=== PATIENT | male | born 1955 ===

== ENCOUNTER 2018-04-26 08:32 | Inpatient (IN) ==
[2018-04-26] MEDS ORDERED: Morphine Inj 4 MG/ML Vial ONE (08:39)
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
[2018-04-26 09:12] LABS: Activated Partial Thrombo Time 21.6 sec (23.4-31.7); Prothrombin Time 10.4 sec (9.8-11.6)
[2018-04-26 09:16] LABS: Baso # (Auto) 0.1 th/mm3 (0.0-0.2); Baso % (Auto) 0.4 % (0.0-2.0); Eos # (Auto) 0.2 th/mm3 (0.0-0.4); Eos % (Auto) 1.2 % (0.0-4.0); Hematocrit 43.2 % (39.0-51.0); Hemoglobin 14.9 gm/dL (13.0-17.0); Lymph # (Auto) 2.4 th/mm3 (1.0-4.8); Lymph % (Auto) 15.1 % (9.0-44.0); Mean Corpuscular HGB Conc 34.4 % (32.0-36.0); Mean Corpuscular Volume 90.1 fL (80.0-100.0); Mono # (Auto) 0.8 th/mm3 (0.0-0.9); Mono % (Auto) 4.8 % (0.0-8.0); Neut # (Auto) 12.5 th/mm3 (1.8-7.7); Neut % (Auto) 78.5 % (16.0-70.0); Platelet Count 201 th/mm3 (150-450); Red Blood Count 4.79 mil/mm3 (4.50-5.90); Red Cell Distribution Width 13.3 % (11.6-17.2); White Blood Count 15.9 th/mm3 (4.0-11.0)
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
[2018-04-26 09:34] LABS: Anion Gap 10 meq/L (5-15); Blood Urea Nitrogen 19 mg/dL (7-18); Calcium 8.9 mg/dL (8.5-10.1); Carbon Dioxide 23.9 meq/L (21.0-32.0); Chloride 98 meq/L (98-107); Glomerular Filtration Rate 42 mL/min (>89); Glucose,Random 407 mg/dL (74-106); Potassium 4.3 meq/L (3.5-5.1); Sodium 132 meq/L (136-145)
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
[2018-04-26] MEDS ORDERED: HYDROmorphone PF Inj 2 MG/ML Vial IV.PUSH ONE (09:44)
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
[2018-04-26] MEDS ORDERED: HYDROmorphone PF Inj 1 MG/ML Ampul ONE (12:16)
[2018-04-26] MEDS ORDERED: fentaNYL Citrate Inj 250 MCG/5 ML Ampul ONE (13:00)
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
[2018-04-26] MEDS ORDERED: ceFAZolin 1 GM Premix Inj 3 GM/150 ML PIGGYBACK IV.SIG ONE (13:20)
[2018-04-26] MEDS ORDERED: Famotidine PF Inj 20 MG/2 ML Vial ONE (13:27)
[2018-04-26] MEDS ORDERED: fentaNYL Citrate Inj 100 MCG/2 ML Ampul ONE (13:27)
[2018-04-26] MEDS ORDERED: Dextrose 50% in Water 50 ML Vial IV.PUSH PRN ×2 (13:31→17:05)
[2018-04-26] MEDS ORDERED: HYDROmorphone PF Inj 1 MG/ML Ampul IV.PUSH ONE (14:00)
[2018-04-26] MEDS ORDERED: Erythromycin 0.5% Opth Oint 3.5 GM Tube ONE (14:02)
[2018-04-26] MEDS ORDERED: Artificial Tears Opth Oint 3.5 GM Tube ONE (14:04)
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
[2018-04-26] MEDS ORDERED: Bupivacaine/Epinephrine Inj 0.25% 50 ML Vial ONE (15:22)
[2018-04-26] MEDS ORDERED: Post-op Orders (for Pharmacy) OTHER STA (15:27)
--- NOTE | 2018-04-26 15:35 | P.OP ---
Date of procedure: 04/26/18 Procedure: Right femur reduction and intramedullary nail fixation Anesthesia: GETA Surgeon: Juan Alberto Caputo MD Emergency Response Coordinator: Justino Welch PA-C The surgical procedure was assisted by my physician assistant store manager. My P.A. presence was necessary throughout this case for the manipulation and positioning of the surgical extremity. My P.A. was assisting me throughout the duration of this procedure. The skill set of a physician assistant store manager was medically necessary to complete this procedure. During the surgical case the instructor adjunct surgical technician was working at the back table and the physician assistant store manager was directly assisting me. Operation and Findings: Implants used: Biomet 11 mm x 440 mm troch nail Plan of activity: 50% weightbearing right leg Patient was seen and evaluated preoperatively. The patient has significant pain from segmental right femur fractures. The risk and benefits of surgery were discussed in depth with the patient to include bleeding, infection, nonunion, malunion, need for hip replacement, painful hardware, as well as medical competitions including blood clots, stroke, heart attack, and . Informed consent was obtained. Operative site was marked. Patient was brought to the operating room and placed on fracture table. IV sedation was administered by anesthesiologist. Timeout procedure was performed. Hip and leg were prepped with alcohol followed by DuraPrep and draped in the usual sterile fashion. IV antibiotics were given prior to incision. Procedure began with reduction of fracture. Traction was applied. Percutaneous incisions were made around the fractures. Using ball spike reduction instruments, the fractures were manipulated to achieve appropriate reduction. Fluoroscopy was used to confirm reduction. A three inch incision was made proximal to the trochanter. Subcutaneous tissue was dissected bluntly. Guidepin was placed at the tip of the trochanter and advanced into the femoral canal. Fluoroscopy confirmed appropriate guidepin placement. A opening reamer was placed over the guidepin. A long ball tipped guide pin was now placed down the femoral canal into the center of the distal femur. The nail length was now measured. Fluoroscopy confirmed appropriate guidepin placement. Flexible reamers were now passed over the guidepin to ream the intramedullary canal. The nail was attached to the insertion handle. Nail was now placed over the guidepin into the femoral canal. Fluoroscopy confirmed appropriate nail placement. A second incision was made over the lateral thigh. Cannulas were placed through the insertion handle down to the femur. Guidepin was now placed through the femoral nail into the center of the femoral head. Fluoroscopy confirmed appropriate guidepin placement. Screw length was measured. Cannulated drill was placed over the guidepin. Appropriate length lag screw was now placed. Traction was released and compression was applied. Both the subtrochanteric and femoral shaft fractures were well aligned. the set screw was now tightened in static mode. Next, using perfect napaimute technique two distal interlocking screws were placed. Screw holes were predrilled and screw lengths were measured. Final fluoroscopy revealed well aligned fracture with well-placed hardware. Incision was closed with 3-0 Vicryl and mars. Sterile dressings were applied. Patient was awakened and transferred to recovery room.
[2018-04-26] MEDS ORDERED: Sodium Chloride 0.9% 2 ML Flush PRN IV.FLUSH (15:37)
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
[2018-04-26] MEDS ORDERED: Insulin NovoLIN Regular Correctional Sugar Inj ONE (16:14)
[2018-04-26] MEDS: Sod Chloride 0.9% Inj 1,000 ML IV.CONT SCH (16:25)
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
[2018-04-26] MEDS: Pantoprazole Inj 40 MG Vial IV.PUSH SCH (16:35)
[2018-04-26] MEDS ORDERED: Sugammadex Inj 200 MG/2 ML Vial IV.PUSH ONE (16:42)
[2018-04-26] MEDS ORDERED: HYDROmorphone PF Inj 0.5 MG/0.5 ML Syringe ONE (16:50)
[2018-04-26] MEDS ORDERED: Insulin NovoLOG Aspart Correctional Sugar Inj SQ SCH (17:00)
[2018-04-26] MEDS: Morphine Inj 4 MG/ML Vial IV.PUSH PRN ×2 (17:10→20:57)
[2018-04-26] MEDS: Calcium/Vitamin D 250/125 MG Tablet PO SCH (17:23)
[2018-04-26] MEDS ORDERED: Diatrizoate Meglum/Diatrizoate Sod Liq 9 ML UDC PO ONE (17:28)
[2018-04-26] MEDS ORDERED: Hold Metfromin until further notice OTHER ONE (17:28)
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
[2018-04-26] MEDS: Insulin NovoLIN Regular Correctional Sugar Inj SQ SCH (18:05)
[2018-04-26] MEDS: Multivitamin Inj 10 ML, Thiamine Inj 100 MG, Folic Acid Inj 1 MG in Sodium Chlor 0.9% I... IV.SIG SCH (19:07)
[2018-04-26 20:10] LABS: Hematocrit 39.1 % (39.0-51.0)
[2018-04-26] MEDS: Sodium Chloride 0.9% 2 ML Flush BID IV.FLUSH SCH (20:56)
[2018-04-26] MEDS: Senna/Docusate Sodium 8.6/50 MG Tablet PO SCH (21:32)
[2018-04-26] MEDS: Methocarbamol 500 MG Tablet PO SCH (23:15)
[2018-04-27] MEDS: Morphine Inj 4 MG/ML Vial IV.PUSH PRN ×3 (00:14→11:42)
[2018-04-27] MEDS: Insulin NovoLIN Regular Correctional Sugar Inj SQ SCH ×5 (00:16→20:37)
[2018-04-27] MEDS: Sod Chloride 0.9% Inj 1,000 ML IV.CONT SCH (00:16)
[2018-04-27] MEDS ORDERED: predniSONE 20 MG Tablet PO SCH (01:00)
[2018-04-27 03:51] LABS: Baso % (Auto) 0.4 % (0.0-2.0); Eos % (Auto) 0.2 % (0.0-4.0); Hematocrit 35.7 % (39.0-51.0); Hemoglobin 12.2 gm/dL (13.0-17.0); Lymph # (Auto) 1.3 th/mm3 (1.0-4.8); Lymph % (Auto) 13.7 % (9.0-44.0); Mean Corpuscular HGB Conc 34.3 % (32.0-36.0); Mean Corpuscular Hemoglobin 30.9 pg (27.0-34.0); Mean Corpuscular Volume 90.2 fL (80.0-100.0); Mean Platelet Volume 9.3 fL (7.0-11.0); Mono # (Auto) 0.9 th/mm3 (0.0-0.9); Mono % (Auto) 9.2 % (0.0-8.0); Neut # (Auto) 7.3 th/mm3 (1.8-7.7); Neut % (Auto) 76.5 % (16.0-70.0); Platelet Count 189 th/mm3 (150-450); Red Blood Count 3.96 mil/mm3 (4.50-5.90); Red Cell Distribution Width 13.7 % (11.6-17.2); White Blood Count 9.5 th/mm3 (4.0-11.0)
[2018-04-27] MEDS ORDERED: Chlorhexidine Gluconate 2% 1 Pack (2 Cloths) TOPICAL PRN (04:00)
[2018-04-27 04:15] LABS: Alanine Aminotransferase 94 U/L (12-78); Albumin 3.3 g/dL (3.4-5.0); Alkaline Phosphatase 78 U/L (45-117); Anion Gap 8 meq/L (5-15); Aspartate Aminotransferase 78 U/L (15-37); Blood Urea Nitrogen 25 mg/dL (7-18); Calcium 8.1 mg/dL (8.5-10.1); Carbon Dioxide 24.9 meq/L (21.0-32.0); Chloride 104 meq/L (98-107); Glomerular Filtration Rate 48 mL/min (>89); Glucose,Random 244 mg/dL (74-106); Potassium 4.4 meq/L (3.5-5.1); Sodium 137 meq/L (136-145); Total Protein 6.1 g/dL (6.4-8.2)
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
[2018-04-27] MEDS: Methocarbamol 500 MG Tablet PO SCH ×4 (06:45→21:00)
[2018-04-27] MEDS: Chlorhexidine Gluconate 2% 1 Pack (2 Cloths) TOPICAL SCH (06:45)
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
[2018-04-27] MEDS: glipiZIDE 5 MG Tablet PO SCH (08:16)
[2018-04-27] MEDS: Senna/Docusate Sodium 8.6/50 MG Tablet PO SCH ×2 (08:16→20:38)
[2018-04-27] MEDS: Calcium/Vitamin D 250/125 MG Tablet PO SCH ×3 (08:16→17:22)
[2018-04-27] MEDS ORDERED: Diatrizoate Meglum/Diatrizoate Sod Liq 9 ML UDC PO ONE (09:00)
[2018-04-27] MEDS: Atenolol 50 MG Tablet PO SCH (10:07)
[2018-04-27] MEDS: Sodium Chloride 0.9% 2 ML Flush BID IV.FLUSH SCH ×2 (10:19→20:38)
[2018-04-27] MEDS ORDERED: Sodium Chloride 0.65% Nasal Spray 45 ML Bottle EACH NARE PRN (12:22)
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
[2018-04-27] MEDS ORDERED: Enoxaparin Inj 40 MG/0.4 ML Syringe SQ SCH (15:00)
[2018-04-27] MEDS: Lidocaine 5% Patch T-DERMAL SCH ×2 (15:17→16:25)
[2018-04-27] MEDS: Pantoprazole Inj 40 MG Vial IV.PUSH SCH (15:18)
--- NOTE | 2018-04-27 15:41 | ECG ---
Date Performed: 04/26/2018 Time Performed: 12:25:16 PTAGE: 89 years EKG: Sinus rhythm MODERATE INTRAVENTRICULAR CONDUCTION DELAY BORDERLINE ECG NO PREVIOUS TRACING DOCTOR: Cong Stone Interpretating Date/Time 04/27/2018 15:40:26
[2018-04-27] MEDS: Multivitamin Inj 10 ML, Thiamine Inj 100 MG, Folic Acid Inj 1 MG in Sodium Chlor 0.9% I... IV.SIG SCH (17:12)
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
[2018-04-27] MEDS: Enoxaparin Inj 30 MG/0.3 ML Syringe SQ SCH (20:38)
[2018-04-27] MEDS ORDERED: predniSONE 20 MG Tablet PO ONE (22:30)
[2018-04-28] MEDS: Insulin NovoLIN Regular Correctional Sugar Inj SQ SCH ×6 (00:26→19:41)
[2018-04-28 04:15] LABS: Baso % (Auto) 0.3 % (0.0-2.0); Eos # (Auto) 0.1 th/mm3 (0.0-0.4); Eos % (Auto) 0.8 % (0.0-4.0); Hematocrit 28.2 % (39.0-51.0); Hemoglobin 9.9 gm/dL (13.0-17.0); Lymph # (Auto) 0.8 th/mm3 (1.0-4.8); Lymph % (Auto) 10.4 % (9.0-44.0); Mean Corpuscular HGB Conc 35.3 % (32.0-36.0); Mean Corpuscular Hemoglobin 31.6 pg (27.0-34.0); Mean Corpuscular Volume 89.7 fL (80.0-100.0); Mean Platelet Volume 9.1 fL (7.0-11.0); Mono # (Auto) 0.7 th/mm3 (0.0-0.9); Mono % (Auto) 10.2 % (0.0-8.0); Neut # (Auto) 5.7 th/mm3 (1.8-7.7); Neut % (Auto) 78.3 % (16.0-70.0); Platelet Count 150 th/mm3 (150-450); Red Blood Count 3.14 mil/mm3 (4.50-5.90); Red Cell Distribution Width 13.4 % (11.6-17.2); White Blood Count 7.3 th/mm3 (4.0-11.0)
[2018-04-28 04:35] LABS: Albumin 3.1 g/dL (3.4-5.0); Anion Gap 7 meq/L (5-15); Aspartate Aminotransferase 46 U/L (15-37); Blood Urea Nitrogen 23 mg/dL (7-18); Calcium 8.4 mg/dL (8.5-10.1); Carbon Dioxide 27.3 meq/L (21.0-32.0); Chloride 105 meq/L (98-107); Glomerular Filtration Rate 64 mL/min (>89); Glucose,Random 227 mg/dL (74-106); Potassium 3.9 meq/L (3.5-5.1); Sodium 139 meq/L (136-145)
[2018-04-28 04:38] LABS: Alanine Aminotransferase 57 U/L (12-78); Alkaline Phosphatase 75 U/L (45-117); Total Protein 6.1 g/dL (6.4-8.2)
[2018-04-28] MEDS: Chlorhexidine Gluconate 2% 1 Pack (2 Cloths) TOPICAL SCH (04:42)
[2018-04-28] MEDS: Methocarbamol 500 MG Tablet PO SCH ×3 (05:01→22:34)
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
[2018-04-28] MEDS ORDERED: Lidocaine 1%/Epinephrine 1:100,000 Inj 50 ML Vial ONE (06:49)
[2018-04-28] MEDS ORDERED: Artificial Tears Opth Oint 3.5 GM Tube ONE (07:09)
[2018-04-28] MEDS ORDERED: Sugammadex Inj 200 MG/2 ML Vial IV.PUSH ONE (07:09)
[2018-04-28] MEDS ORDERED: fentaNYL Citrate Inj 250 MCG/5 ML Ampul ONE (07:10)
[2018-04-28] MEDS ORDERED: ceFAZolin 1 GM Premix Inj 2 GM/100 ML PIGGYBACK IV.SIG ONE (07:17)
[2018-04-28] MEDS ORDERED: Metoprolol Tartrate 25 MG Tablet PO ONE (07:18)
[2018-04-28] MEDS ORDERED: Chlorhexidine Gluconate 2% 1 Pack (2 Cloths) TOPICAL ONE (07:18)
[2018-04-28] MEDS ORDERED: Sodium Chlor 0.9% Inj 500 ML IV.SIG SCH (08:00)
[2018-04-28] MEDS ORDERED: Bupivacaine/Epinephrine Inj 0.25% 50 ML Vial ONE (08:01)
--- NOTE | 2018-04-28 11:44 | P.OP ---
- Preoperative Diagnosis (1) Closed fracture of left distal radius Date of procedure: 04/28/18 Procedure: Open reduction reduction internal fixation left distal radius Surgeon: Juan Alberto Caputo MD Predatory Game Hunter: MAYNOR Martinez PA-C The surgical procedure was assisted by my physician central supply assistant. My P.A. presence was necessary throughout this case for the manipulation and positioning of the surgical extremity. My P.A. was assisting me throughout the duration of this procedure. The skill set of a physician central supply assistant was medically necessary to complete this procedure. During the surgical case the digital technician was working at the back table and the physician central supply assistant was directly assisting me. Operation and Findings: Implants used: Synthes Plan of activity: Nonweightbearing Details of procedure: Patient was seen and evaluated preoperatively and found to have a displaced distal radius fracture. Informed consent was obtained after detailed discussion of risk and benefits including bleeding, infection, injury to arteries, nerves, and blood vessels, weakness and numbness of hand, and tendon rupture. Informed consent was obtained. Patient received IV antibiotics prior to incision. Timeout procedure was performed. Operative extremity was prepped with alcohol followed by Hibiclens and draped usual sterile fashion. A standard volar approach to the distal radius was utilized. A 3 inch incision was made over the FCR tendon. Tendon sheath was opened. Pronator quadratus was elevated up. The fracture site was now visualized. The fracture did have intra-articular extension. Traction was applied. The articular surface was reduced. Fracture fragments were manipulated to achieve excellent reduction. K wires were used to hold provisional fixation. A fracture tenaculum was used to compress the radial styloid fragment to the remainder of the radius. Fluoroscopy confirmed appropriate alignment of fracture. A Synthes fragment specific distal radius plate was selected and contoured to fit along the radial styloid fragment. Plate was provisionally fixed to bone with K wires. 2.4 cortical screws were used to compress plate to bone. Fluoroscopy confirmed appropriate alignment of fracture with well-placed hardware. Multiple 2.4 locking screws were now placed distally. Screws were predrilled and measured for appropriate length. 2 additional screws were placed into the shaft. K wires were removed. Final fluoroscopy revealed excellent of fracture with well- placed hardware. The wound was thoroughly irrigated with sterile saline. Subcutaneous tissue was closed with 3-0 Vicryl and skin was closed with 3-0 nylon. Sterile dressings were applied with Xeroform, 4 x 4, soft roll, and a well padded volar splint. Patient was awakened and transferred to recovery room in stable condition
[2018-04-28] MEDS ORDERED: Morphine Inj 4 MG/ML Vial ONE (12:18)
[2018-04-28] MEDS ORDERED: fentaNYL Citrate Inj 100 MCG/2 ML Ampul ONE (12:19)
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
[2018-04-28] MEDS: Enoxaparin Inj 30 MG/0.3 ML Syringe SQ SCH ×2 (13:32→20:02)
[2018-04-28] MEDS: Calcium/Vitamin D 250/125 MG Tablet PO SCH ×3 (13:33→18:39)
[2018-04-28] MEDS: Senna/Docusate Sodium 8.6/50 MG Tablet PO SCH ×2 (13:34→20:02)
[2018-04-28] MEDS: glipiZIDE 5 MG Tablet PO SCH (13:56)
[2018-04-28] MEDS: Pantoprazole Inj 40 MG Vial IV.PUSH SCH (14:20)
[2018-04-28] MEDS: Lidocaine 5% Patch T-DERMAL SCH (14:20)
[2018-04-28] MEDS: ceFAZolin 2 GM Premix Inj 2 GM/50 ML PIGGYBACK IV.SIG SCH ×2 (14:20→20:02)
[2018-04-28] MEDS: Sodium Chloride 0.9% 2 ML Flush BID IV.FLUSH SCH ×2 (14:21→20:02)
[2018-04-28] MEDS: Atenolol 50 MG Tablet PO SCH ×2 (14:21→18:51)
[2018-04-28] MEDS: Multivitamin Inj 10 ML, Thiamine Inj 100 MG, Folic Acid Inj 1 MG in Sodium Chlor 0.9% I... IV.SIG SCH (14:25)
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
[2018-04-28] MEDS: Morphine Inj 4 MG/ML Vial IV.PUSH PRN ×2 (16:00→20:09)
[2018-04-28] MEDS ORDERED: Influenza (Quadrivalent) Vaccine 0.5 ML Syringe IM ONE (18:00)
[2018-04-29] MEDS: Insulin NovoLIN Regular Correctional Sugar Inj SQ SCH ×6 (00:40→22:10)
[2018-04-29] MEDS: ceFAZolin 2 GM Premix Inj 2 GM/50 ML PIGGYBACK IV.SIG SCH (03:48)
[2018-04-29] MEDS: Morphine Inj 4 MG/ML Vial IV.PUSH PRN (03:48)
[2018-04-29] MEDS: Chlorhexidine Gluconate 2% 1 Pack (2 Cloths) TOPICAL SCH (05:04)
[2018-04-29] MEDS: Methocarbamol 500 MG Tablet PO SCH ×3 (05:35→22:22)
[2018-04-29 06:05] LABS: Baso % (Auto) 0.3 % (0.0-2.0); Eos # (Auto) 0.1 th/mm3 (0.0-0.4); Eos % (Auto) 1.2 % (0.0-4.0); Hematocrit 22.9 % (39.0-51.0); Hemoglobin 8.2 gm/dL (13.0-17.0); Lymph # (Auto) 0.9 th/mm3 (1.0-4.8); Lymph % (Auto) 15.3 % (9.0-44.0); Mean Corpuscular HGB Conc 35.8 % (32.0-36.0); Mean Corpuscular Hemoglobin 32.1 pg (27.0-34.0); Mean Corpuscular Volume 89.7 fL (80.0-100.0); Mean Platelet Volume 8.7 fL (7.0-11.0); Mono # (Auto) 0.6 th/mm3 (0.0-0.9); Neut # (Auto) 4.4 th/mm3 (1.8-7.7); Neut % (Auto) 73.2 % (16.0-70.0); Platelet Count 141 th/mm3 (150-450); Red Blood Count 2.55 mil/mm3 (4.50-5.90); Red Cell Distribution Width 13.7 % (11.6-17.2)
[2018-04-29 06:12] LABS: Calcium 8.2 mg/dL (8.5-10.1); Carbon Dioxide 28.8 meq/L (21.0-32.0); Potassium 3.7 meq/L (3.5-5.1)
--- NOTE | 2018-04-29 06:26 | P.PNOP ---
Subjective Interval history: POD 1 s/p ORIF left wrist POD 3 s/p IMN right femur doing well. states no pain in wrist but soreness in femur Physical Exam Vital signs: Vital Signs 04/28/18 12:10 04/28/18 12:15 04/28/18 12:17 Temperature 96.4 F L Pulse Rate 106 H 105 H Respiratory Rate 17 17 Blood Pressure 136/74 174/78 H Pulse Oximetry 91 L 93 L 95 04/28/18 12:30 04/28/18 12:50 04/28/18 13:12 Temperature Pulse Rate 102 H Respiratory Rate 17 Blood Pressure 174/78 H 130/64 Pulse Oximetry 96 97 95 04/28/18 13:17 04/28/18 13:32 04/28/18 13:47 Temperature Pulse Rate 98 H 98 H 107 H Respiratory Rate 13 10 L 7 L Blood Pressure 148/68 H 148/69 H 140/61 Pulse Oximetry 95 96 98 04/28/18 14:00 04/28/18 14:02 04/28/18 14:17 Temperature Pulse Rate 95 H 97 H 100 H Respiratory Rate 8 L 9 L 12 Blood Pressure 141/64 H 145/64 H Pulse Oximetry 96 97 99 04/28/18 14:32 04/28/18 14:47 04/28/18 15:00 Temperature Pulse Rate 99 H 94 H 95 H Respiratory Rate 6 L 9 L 14 Blood Pressure 133/60 136/62 Pulse Oximetry 98 99 98 04/28/18 15:02 04/28/18 15:17 04/28/18 15:32 Temperature Pulse Rate 96 H 100 H 96 H Respiratory Rate 12 0 L 0 L Blood Pressure 125/60 127/61 131/61 Pulse Oximetry 99 94 L 97 04/28/18 15:47 04/28/18 20:18 04/28/18 23:55 Temperature 98.6 F 98.6 F 99.2 F Pulse Rate 106 H 103 H Respiratory Rate 20 18 Blood Pressure 128/66 143/65 H 108/54 L Pulse Oximetry 94 L 94 L 04/29/18 00:33 Temperature Pulse Rate Respiratory Rate 16 Blood Pressure Pulse Oximetry Intake & Output 04/28/18 04/28/18 04/29/18 06:59 18:59 06:59 Intake Total 751.2 / 751.2 1550 / 1550 611.2 / 611.2 Output Total 880 / 880 475 / 475 Balance -128.8 / -128.8 1075 / 1075 611.2 / 611.2 Weight 136.8 kg Intake: IV 511.2 / 511.2 50 / 50 611.2 / 611.2 MVI-12 Inj 10 ML Thiamine Inj 511.2 / 511.2 511.2 / 511.2 100 MG Folvite Inj 1 MG In NS Inj 500 ML @ 125 mls/hr IV.SIG Q24H [facility] Rx#:[id number] Ancef 2 GM Premix Inj 2 gm In 50 / 50 100 / 100 50 ml @ 100 mls/hr IV.SIG Q8H [facility] Rx#:[id number] Oral 240 / 240 Anesthesia Amount 1500 / 1500 Output: Urine 880 / 880 450 / 450 Estimated Blood Loss 25 / Other: Date of Last Bowel Movement 04/25/18 # Bowel Movements 0 Narrative: LUE: +short arm splint. intact. NVI RLE: dressings clean and dry. compartments soft. nvi Results - Labs CBC & Chem 7: 04/29/18 04:51 04/29/18 04:51 Laboratory Results - last 24 hr 04/28/18 04/28/18 04/28/18 07:27 12:15 14:19 WBC RBC Hgb Hct MCV MCH MCHC RDW Plt Count MPV Neut % (Auto) Lymph % (Auto) [place] % (Auto) Eos % (Auto) Baso % (Auto) Neut # (Auto) Lymph # (Auto) [place] # (Auto) Eos # (Auto) Baso # (Auto) WBC Differential Differential Comment Sodium Potassium Chloride Carbon Dioxide Anion Gap BUN Creatinine Estimated GFR POC Glucose 251 H 279 H 309 H Random Glucose Calcium 04/28/18 04/29/18 04/29/18 19:11 00:24 03:38 WBC RBC Hgb Hct MCV MCH MCHC RDW Plt Count MPV Neut % (Auto) Lymph % (Auto) [place] % (Auto) Eos % (Auto) Baso % (Auto) Neut # (Auto) Lymph # (Auto) [place] # (Auto) Eos # (Auto) Baso # (Auto) WBC Differential Differential Comment Sodium Potassium Chloride Carbon Dioxide Anion Gap BUN Creatinine Estimated GFR POC Glucose 245 H 234 H 235 H Random Glucose Calcium 04/29/18 04/29/18 04:51 04:51 WBC 6.0 RBC 2.55 L Hgb 8.2 L Hct 22.9 L MCV 89.7 MCH 32.1 MCHC 35.8 RDW 13.7 Plt Count 141 L MPV 8.7 Neut % (Auto) 73.2 H Lymph % (Auto) 15.3 [place] % (Auto) 10.0 H Eos % (Auto) 1.2 Baso % (Auto) 0.3 Neut # (Auto) 4.4 Lymph # (Auto) 0.9 L [place] # (Auto) 0.6 Eos # (Auto) 0.1 Baso # (Auto) 0.0 WBC Differential . Differential Comment Auto diff final Sodium 139 Potassium 3.7 Chloride 106 Carbon Dioxide 28.8 Anion Gap 4 L BUN 22 H Creatinine 1.32 H Estimated GFR 55 L POC Glucose Random Glucose 204 H Calcium 8.2 L - Imaging Impressions Wrist X-Ray 04/28/18 00:00 CONCLUSION: Improved alignment following left distal radius ORIF. Assessment and Plan - Assessment and Plan 1) Left Distal Radius Fx s/p ORIF - POD 1 2) Right Femur Fx s/p IMN - POD 3 LUE: -NWB -maintain splint at all times -ok for platform walker RLE: -50%WB -daily dressing changes -DVT prophylaxis -ortho surgeries complete -CM for DC planning. home with [facility] vs SNF pending patient's ambulatory status -ortho cleared for DC once arrangements made -scripts on chart -f/u with Mayank or JAZZY in 2 weeks [facility] Prescription Drug Monitoring Database has been queried and verified prior to prescribing the controlled substance. Acute pain exception. This patient has normal, predicted, physiological, and time limited response to an adverse mechanical stimulus associated with surgery, trauma, or acute illness as described in my notes. There is a lack of alternative treatment options other than to include the prescribed narcotic treatment for this condition.
--- NOTE | 2018-04-29 06:30 | P.DCO ---
- Physical Therapy Physical Therapy: Gait training Hip: Hip fracture, Protocol: Right Right Lower Extremity Weight Bearing: Partial weight bearing 50% - Occupational Therapy Left Upper Extremity Weight Bearing: Non-weight bearing, May use platform walker - Nursing Dressing changes: Daily dressing change (to right leg only), Xeroform, Coverderm /Primapore - Certification Need for Home Health services: I have seen patient Alfred Hummel on 04/29/18. My clinical findings support the need for the requested home health care services because: Need for Home Health Services: Limited mobility due to disease progression Homebound Certification: I certify that my clinical findings support that this patient is homebound because: Homebound Certification: Post-op weakness
[2018-04-29] MEDS: Atenolol 50 MG Tablet PO SCH (08:56)
[2018-04-29] MEDS: Senna/Docusate Sodium 8.6/50 MG Tablet PO SCH ×2 (08:56→22:22)
[2018-04-29] MEDS: Enoxaparin Inj 30 MG/0.3 ML Syringe SQ SCH ×2 (08:57→22:22)
[2018-04-29] MEDS: Calcium/Vitamin D 250/125 MG Tablet PO SCH ×3 (08:57→17:35)
[2018-04-29] MEDS: glipiZIDE 5 MG Tablet PO SCH (08:57)
[2018-04-29] MEDS: Lidocaine 5% Patch T-DERMAL SCH (08:57)
[2018-04-29] MEDS: Sodium Chloride 0.9% 2 ML Flush BID IV.FLUSH SCH ×2 (11:33→22:24)
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
--- NOTE | 2018-04-29 16:41 | P.OP ---
- Postoperative Diagnosis (1) Fracture of orbital floor Date of procedure: 04/28/18 Procedure: Open reduction internal fixation of right orbital floor fracture with titanium implant (06179) Implants: KLS Shahram titanium orbital floor implant Anesthesia: GETA Surgeon: Adilson Schmidt MD Operation and Findings: 62-year-old male who presented with right orbital floor fracture. Risk benefits alternative treatments were discussed. All questions were answered and the patient and patient's expressed understanding. Patient elected to assume the risks of open reduction internal fixation of above fracture. Informed consent was obtained. The patient was given antibiotics on-call to the operating room. The patient was taken to the operating room and all pressure points were padded. A surgical timeout was performed. SCDs were in place the time of induction. After the smooth induction of general anesthesia, the surgical site was prepped and draped in the usual sterile fashion. Quarter percent Marcaine with epinephrine was instilled into the surgical site. Through a trans-conjunctival preseptal approach, the orbital rim was encountered. The arcuate ligament was released from the inferior orbital rim. The orbital floor was exposed in a subperiosteal plane. Given the significant post septal edema, which was seen preoperatively on CT, a lateral canthotomy was necessary for adequate exposure. The lateral canthotomy was made in the lateral aspect of the inferior tarsus just medial to the lateral canthus. Following the above release, this gave excellent exposure of the orbital floor. The orbital contents were reduced into the orbit from the maxillary sinus. A KLS Shahram titanium implant was selected, contoured and placed over the defect. This was necessary due to the size of the orbital floor defect. A forced duction test revealed no restriction in movement of the globe. All needle sponge and estimate counts were correct x2. The patient was awoken from anesthesia and arrived stable and doing well to the PACU.
[2018-04-29] MEDS: Sod Chloride 0.9% Inj 1,000 ML IV.CONT SCH ×2 (16:42→20:00)
--- NOTE | 2018-04-29 18:11 | P.PN ---
Subjective Interval history: Postoperative day 1 status post right orbital floor fracture ORIF Patient reports that pain is mild to moderate and well controlled on current regimen. He reports that the mild diplopia and moderate decrease in right V2 sensation have both significantly improved. He is without new complaints Physical Exam Vital signs: Vital Signs 04/28/18 20:18 04/28/18 23:55 04/29/18 00:33 Temperature 98.6 F 99.2 F Pulse Rate 106 H 103 H Respiratory Rate 20 18 16 Blood Pressure 143/65 H 108/54 L Pulse Oximetry 94 L 94 L 04/29/18 04:00 04/29/18 08:32 04/29/18 12:26 Temperature 98.9 F 98.2 F 98.3 F Pulse Rate 97 H 88 84 Respiratory Rate 18 19 19 Blood Pressure 132/58 L 150/64 H 143/73 H Pulse Oximetry 97 96 95 04/29/18 16:40 Temperature 97.9 F Pulse Rate 82 Respiratory Rate 19 Blood Pressure 138/60 Pulse Oximetry 98 Intake & Output 04/28/18 04/29/18 04/29/18 18:59 06:59 18:59 Intake Total 1550 / 1550 611.2 / 611.2 Output Total 475 / 475 800 / 800 Balance 1075 / 1075 611.2 / 611.2 -800 / -800 Intake: IV 50 / 50 611.2 / 611.2 MVI-12 Inj 10 ML Thiamine Inj 511.2 / 511.2 100 MG Folvite Inj 1 MG In NS Inj 500 ML @ 125 mls/hr IV.SIG Q24H [facility] Rx#:[id number] Ancef 2 GM Premix Inj 2 gm In 50 / 50 100 / 100 50 ml @ 100 mls/hr IV.SIG Q8H [facility] Rx#:[id number] Anesthesia Amount 1500 / 1500 Output: Urine 450 / 450 800 / 800 Estimated Blood Loss 25 / 25 Other: Date of Last Bowel Movement 04/25/18 04/28/18 Narrative: Vision intact by exam Extraocular muscles intact and without restriction in gaze Right V2 subjective decrease in sensation improved from preoperatively Results - Labs CBC & Chem 7: 04/29/18 04:51 04/29/18 04:51 Laboratory Results - last 24 hr 04/28/18 04/29/18 04/29/18 19:11 00:24 03:38 WBC RBC Hgb Hct MCV MCH MCHC RDW Plt Count MPV Neut % (Auto) Lymph % (Auto) [place] % (Auto) Eos % (Auto) Baso % (Auto) Neut # (Auto) Lymph # (Auto) [place] # (Auto) Eos # (Auto) Baso # (Auto) WBC Differential Differential Comment Sodium Potassium Chloride Carbon Dioxide Anion Gap BUN Creatinine Estimated GFR POC Glucose 245 H 234 H 235 H Random Glucose Calcium 04/29/18 04/29/18 04/29/18 04:51 04:51 08:49 WBC 6.0 RBC 2.55 L Hgb 8.2 L Hct 22.9 L MCV 89.7 MCH 32.1 MCHC 35.8 RDW 13.7 Plt Count 141 L MPV 8.7 Neut % (Auto) 73.2 H Lymph % (Auto) 15.3 [place] % (Auto) 10.0 H Eos % (Auto) 1.2 Baso % (Auto) 0.3 Neut # (Auto) 4.4 Lymph # (Auto) 0.9 L [place] # (Auto) 0.6 Eos # (Auto) 0.1 Baso # (Auto) 0.0 WBC Differential . Differential Comment Auto diff final Sodium 139 Potassium 3.7 Chloride 106 Carbon Dioxide 28.8 Anion Gap 4 L BUN 22 H Creatinine 1.32 H Estimated GFR 55 L POC Glucose 211 H Random Glucose 204 H Calcium 8.2 L 04/29/18 04/29/18 11:49 17:33 WBC RBC Hgb Hct MCV MCH MCHC RDW Plt Count MPV Neut % (Auto) Lymph % (Auto) [place] % (Auto) Eos % (Auto) Baso % (Auto) Neut # (Auto) Lymph # (Auto) [place] # (Auto) Eos # (Auto) Baso # (Auto) WBC Differential Differential Comment Sodium Potassium Chloride Carbon Dioxide Anion Gap BUN Creatinine Estimated GFR POC Glucose 198 H 166 H Random Glucose Calcium Assessment and Plan - Assessment (1) Fracture of orbital floor Code(s): S02.30XA - Fracture of orbital floor, unspecified side, initial encounter for closed fracture Status: Acute - Plan 62-year-old male status post 04/28/2018 right orbital floor fracture ORIF Doing very well Ophthalmology consult Patient to follow-up with Dr. Taylor's group as I will be out of town, but patient may then follow-up with myself the second week in May, he should call clinic for above appointments TobraDex drops to right eye Mupirocin ointment to right facial abrasion twice daily Please call with questions
[2018-04-30] MEDS: Insulin NovoLIN Regular Correctional Sugar Inj SQ SCH ×5 (03:03→21:01)
[2018-04-30] MEDS: Methocarbamol 500 MG Tablet PO SCH ×3 (06:53→21:04)
[2018-04-30 07:09] LABS: Baso % (Auto) 0.3 % (0.0-2.0); Eos # (Auto) 0.2 th/mm3 (0.0-0.4); Hemoglobin 8.5 gm/dL (13.0-17.0); Lymph # (Auto) 0.9 th/mm3 (1.0-4.8); Lymph % (Auto) 14.7 % (9.0-44.0); Mean Corpuscular HGB Conc 35.3 % (32.0-36.0); Mean Corpuscular Hemoglobin 32.2 pg (27.0-34.0); Mean Corpuscular Volume 91.1 fL (80.0-100.0); Mean Platelet Volume 8.4 fL (7.0-11.0); Mono # (Auto) 0.6 th/mm3 (0.0-0.9); Mono % (Auto) 9.9 % (0.0-8.0); Neut # (Auto) 4.2 th/mm3 (1.8-7.7); Neut % (Auto) 72.1 % (16.0-70.0); Platelet Count 161 th/mm3 (150-450); Red Blood Count 2.64 mil/mm3 (4.50-5.90); Red Cell Distribution Width 13.7 % (11.6-17.2); White Blood Count 5.8 th/mm3 (4.0-11.0)
[2018-04-30 07:33] LABS: Calcium 8.6 mg/dL (8.5-10.1); Carbon Dioxide 28.1 meq/L (21.0-32.0); Potassium 3.7 meq/L (3.5-5.1)
[2018-04-30] MEDS: Atenolol 50 MG Tablet PO SCH (08:00)
[2018-04-30] MEDS: Calcium/Vitamin D 250/125 MG Tablet PO SCH ×3 (08:00→17:33)
[2018-04-30] MEDS: Senna/Docusate Sodium 8.6/50 MG Tablet PO SCH ×2 (08:00→20:59)
[2018-04-30] MEDS: glipiZIDE 5 MG Tablet PO SCH (08:00)
[2018-04-30] MEDS: Enoxaparin Inj 30 MG/0.3 ML Syringe SQ SCH ×2 (08:01→21:00)
[2018-04-30] MEDS: Lidocaine 5% Patch T-DERMAL SCH (08:01)
--- NOTE | 2018-04-30 08:12 | P.PNOP ---
Subjective Interval history: Patient resting comfortably. No acute events overnight Physical Exam Vital signs: Vital Signs 04/29/18 08:32 04/29/18 12:26 04/29/18 16:40 Temperature 98.2 F 98.3 F 97.9 F Pulse Rate 88 84 82 Respiratory Rate 19 19 19 Blood Pressure 150/64 H 143/73 H 138/60 Pulse Oximetry 96 95 98 04/29/18 20:58 04/30/18 00:27 04/30/18 04:22 Temperature 98.8 F 98.7 F 98.6 F Pulse Rate 80 82 83 Respiratory Rate 18 17 16 Blood Pressure 164/70 H 147/69 H 178/81 H Pulse Oximetry 97 99 98 Intake & Output 04/29/18 04/30/18 04/30/18 18:59 06:59 18:59 Intake Total 1000 / 1000 Output Total 800 / 800 0 / 0 Balance -800 / -800 1000 / 1000 Weight 48.6 kg Intake: Oral 1000 / 1000 Output: Urine 800 / 800 Stool 0 / 0 Other: # Voids 5 Date of Last Bowel Movement 04/28/18 04/28/18 Results - Labs CBC & Chem 7: 04/30/18 05:40 04/30/18 05:40 Laboratory Results - last 24 hr 04/29/18 04/29/18 04/29/18 08:49 11:49 17:33 WBC RBC Hgb Hct MCV MCH MCHC RDW Plt Count MPV Neut % (Auto) Lymph % (Auto) [place] % (Auto) Eos % (Auto) Baso % (Auto) Neut # (Auto) Lymph # (Auto) [place] # (Auto) Eos # (Auto) Baso # (Auto) WBC Differential Differential Comment Sodium Potassium Chloride Carbon Dioxide Anion Gap BUN Creatinine Estimated GFR POC Glucose 211 H 198 H 166 H Random Glucose Calcium 04/29/18 04/30/18 04/30/18 22:12 00:59 05:40 WBC 5.8 RBC 2.64 L Hgb 8.5 L Hct 24.0 L MCV 91.1 MCH 32.2 MCHC 35.3 RDW 13.7 Plt Count 161 MPV 8.4 Neut % (Auto) 72.1 H Lymph % (Auto) 14.7 [place] % (Auto) 9.9 H Eos % (Auto) 3.0 Baso % (Auto) 0.3 Neut # (Auto) 4.2 Lymph # (Auto) 0.9 L [place] # (Auto) 0.6 Eos # (Auto) 0.2 Baso # (Auto) 0.0 WBC Differential . Differential Comment Auto diff final Sodium Potassium Chloride Carbon Dioxide Anion Gap BUN Creatinine Estimated GFR POC Glucose 213 H 205 H Random Glucose Calcium 04/30/18 04/30/18 04/30/18 05:40 06:52 07:56 WBC RBC Hgb Hct MCV MCH MCHC RDW Plt Count MPV Neut % (Auto) Lymph % (Auto) [place] % (Auto) Eos % (Auto) Baso % (Auto) Neut # (Auto) Lymph # (Auto) [place] # (Auto) Eos # (Auto) Baso # (Auto) WBC Differential Differential Comment Sodium 141 Potassium 3.7 Chloride 105 Carbon Dioxide 28.1 Anion Gap 8 BUN 18 Creatinine 1.05 Estimated GFR 72 L POC Glucose 187 H 183 H Random Glucose 164 H Calcium 8.6 Assessment and Plan - Problem List (1) Closed femur fracture Code(s): S72.90XA - Unspecified fracture of unspecified femur, initial encounter for closed fracture Status: Acute Qualifiers: Encounter type: initial encounter Fracture morphology: comminuted Fracture alignment: displaced Laterality: right (2) Closed fracture of left distal radius Code(s): S52.502A - Unspecified fracture of the lower end of left radius, initial encounter for closed fracture Status: Acute - Assessment and Plan 1) Left Distal Radius Fx s/p ORIF - POD 2 2) Right Femur Fx s/p IMN - POD 4 LUE: -NWB -maintain splint at all times -ok for platform walker RLE: -50%WB -daily dressing changes -DVT prophylaxis -ortho surgeries complete -CM for DC planning. home with [facility] vs SNF pending patient's ambulatory status -ortho cleared for DC once arrangements made -scripts on chart -f/u with Mayank or JAZZY in 2 weeks E-FORE Prescription Drug Monitoring Database has been queried and verified prior to prescribing the controlled substance. Acute pain exception. This patient has normal, predicted, physiological, and time limited response to an adverse mechanical stimulus associated with surgery, trauma, or acute illness as described in my notes. There is a lack of alternative treatment options other than to include the prescribed narcotic treatment for this condition.
[2018-04-30] MEDS: Sodium Chloride 0.9% 2 ML Flush BID IV.FLUSH SCH ×2 (09:31→21:01)
[2018-04-30] MEDS: Sod Chloride 0.9% Inj 1,000 ML IV.CONT SCH (09:32)
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
[2018-04-30] MEDS ORDERED: Bisacodyl 10 MG Supp RECTAL PRN (13:44)
[2018-04-30] MEDS: Chlorhexidine Gluconate 2% 1 Pack (2 Cloths) TOPICAL SCH (21:00)
[2018-05-01] MEDS: Methocarbamol 500 MG Tablet PO SCH ×3 (05:03→21:08)
[2018-05-01] MEDS: Insulin NovoLIN Regular Correctional Sugar Inj SQ SCH ×5 (05:03→21:09)
[2018-05-01] MEDS: Chlorhexidine Gluconate 2% 1 Pack (2 Cloths) TOPICAL SCH (05:03)
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
[2018-05-01] MEDS: Enoxaparin Inj 30 MG/0.3 ML Syringe SQ SCH ×2 (11:20→20:56)
[2018-05-01] MEDS: Calcium/Vitamin D 250/125 MG Tablet PO SCH ×3 (11:21→18:49)
[2018-05-01] MEDS: Senna/Docusate Sodium 8.6/50 MG Tablet PO SCH ×2 (11:21→21:08)
[2018-05-01] MEDS: Atenolol 50 MG Tablet PO SCH (11:21)
[2018-05-01] MEDS: Lidocaine 5% Patch T-DERMAL SCH (11:22)
[2018-05-01] MEDS: glipiZIDE 5 MG Tablet PO SCH (11:22)
[2018-05-01] MEDS: Sodium Chloride 0.9% 2 ML Flush BID IV.FLUSH SCH ×2 (11:23→21:08)
[2018-05-02] MEDS: Insulin NovoLIN Regular Correctional Sugar Inj SQ SCH ×5 (03:31→21:08)
[2018-05-02] MEDS: Methocarbamol 500 MG Tablet PO SCH ×3 (06:36→21:10)
[2018-05-02] MEDS: glipiZIDE 5 MG Tablet PO SCH (08:53)
[2018-05-02] MEDS: Atenolol 50 MG Tablet PO SCH (08:53)
[2018-05-02] MEDS: Senna/Docusate Sodium 8.6/50 MG Tablet PO SCH ×2 (08:53→21:10)
[2018-05-02] MEDS: Calcium/Vitamin D 250/125 MG Tablet PO SCH ×3 (08:53→18:01)
[2018-05-02] MEDS: Enoxaparin Inj 30 MG/0.3 ML Syringe SQ SCH ×2 (08:54→21:09)
[2018-05-02] MEDS: Lidocaine 5% Patch T-DERMAL SCH (09:03)
[2018-05-02] MEDS: Sodium Chloride 0.9% 2 ML Flush BID IV.FLUSH SCH ×2 (09:07→21:11)
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
[2018-05-03] MEDS: Insulin NovoLIN Regular Correctional Sugar Inj SQ SCH ×5 (04:00→21:00)
[2018-05-03] MEDS: Methocarbamol 500 MG Tablet PO SCH ×3 (06:45→20:59)
[2018-05-03] MEDS: Calcium/Vitamin D 250/125 MG Tablet PO SCH ×3 (09:05→19:22)
[2018-05-03] MEDS: Senna/Docusate Sodium 8.6/50 MG Tablet PO SCH ×2 (09:05→20:59)
[2018-05-03] MEDS: glipiZIDE 5 MG Tablet PO SCH (09:05)
[2018-05-03] MEDS: Atenolol 50 MG Tablet PO SCH (09:05)
[2018-05-03] MEDS: Lidocaine 5% Patch T-DERMAL SCH (09:07)
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
[2018-05-03] MEDS: Enoxaparin Inj 30 MG/0.3 ML Syringe SQ SCH ×2 (09:19→21:00)
[2018-05-03] MEDS: Sodium Chloride 0.9% 2 ML Flush BID IV.FLUSH SCH ×2 (09:20→21:01)
[2018-05-04] MEDS: Insulin NovoLIN Regular Correctional Sugar Inj SQ SCH ×5 (03:13→22:38)
[2018-05-04 03:25] LABS: Amphetamine Screen,Urine Neg (Neg); Barbiturate Screen,Urine Neg (Neg); Cannabinoid Screen,Urine Neg (Neg); Cocaine Screen,Urine Neg (Neg)
[2018-05-04 03:28] LABS: Opiate Screen,Urine Pos (Neg)
[2018-05-04] MEDS: Methocarbamol 500 MG Tablet PO SCH ×3 (05:58→21:21)
[2018-05-04] MEDS: Calcium/Vitamin D 250/125 MG Tablet PO SCH ×3 (08:11→17:18)
[2018-05-04] MEDS: Atenolol 50 MG Tablet PO SCH (08:11)
[2018-05-04] MEDS: glipiZIDE 5 MG Tablet PO SCH (08:11)
[2018-05-04] MEDS: Senna/Docusate Sodium 8.6/50 MG Tablet PO SCH ×2 (08:11→21:21)
[2018-05-04] MEDS: Enoxaparin Inj 30 MG/0.3 ML Syringe SQ SCH ×2 (08:12→21:20)
[2018-05-04] MEDS: Lidocaine 5% Patch T-DERMAL SCH (08:16)
[2018-05-04] MEDS: Sodium Chloride 0.9% 2 ML Flush BID IV.FLUSH SCH ×2 (08:16→21:23)
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
[2018-05-05] MEDS: Insulin NovoLIN Regular Correctional Sugar Inj SQ SCH ×3 (06:04→13:23)
[2018-05-05] MEDS: Methocarbamol 500 MG Tablet PO SCH ×2 (06:04→13:22)
[2018-05-05] MEDS: Atenolol 50 MG Tablet PO SCH (08:34)
[2018-05-05] MEDS: Senna/Docusate Sodium 8.6/50 MG Tablet PO SCH (08:34)
[2018-05-05] MEDS: glipiZIDE 5 MG Tablet PO SCH (08:34)
[2018-05-05] MEDS: Enoxaparin Inj 30 MG/0.3 ML Syringe SQ SCH (08:34)
[2018-05-05] MEDS: Calcium/Vitamin D 250/125 MG Tablet PO SCH ×2 (08:34→13:20)
[2018-05-05] MEDS: Lidocaine 5% Patch T-DERMAL SCH (08:35)
[2018-05-05] MEDS: Sodium Chloride 0.9% 2 ML Flush BID IV.FLUSH SCH (08:37)
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
== END 2018-05-05 15:21 ==
LOC: NEPI 08:32 → EDBD 09:44 → NEDA 09:44 → HPAC 13:17 → N03 17:05 → N06 04-28 17:59
PROVIDERS: ADMIT Surgery; ATTEND Surgery